=== PATIENT | female | born 1935 | race Caucasian/White ===

== ENCOUNTER 2018-02-04 14:41 | Outpatient (CLI) | payer MEDICARE, BC | END 2018-02-04 14:42 | disposition home or self-care (01) | LOC: BICMAMMO 14:41 | PROVIDERS: ATTEND Family Medicine | DX: Z12.31 Encounter for screening mammogram for malignant neoplasm of breast (principal); Z85.3 Personal history of malignant neoplasm of breast | CPT/HCPCS: 77063; 77067 ==

== ENCOUNTER 2018-04-30 15:13 | Outpatient (CLI) | payer MEDICARE, BC ==
--- NOTE | 2018-04-30 16:25 | MRI ---
MRI LUMBAR SPINE NONCONTRAST: Date: 04/30/18 HISTORY: Low back pain. Left leg radiculopathy. FINDINGS: Conus medullaris has a normal appearance. There is desiccation of lowest three intervertebral discs. Vertebral body heights are maintained. T12-L1: Mild osteophytosis. Central canal and neural foramina are patent. L1-2: Mild disc bulge. Thecal sac and neural foramina are patent. L2-3: Osteophytosis of the facets. Mild stenosis of each neural foramen. L3-4: Minimal degenerative spondylolisthesis. Small annular fissure at the right posterolateral aspect of t he disc. Posterior disc bulge and circumferential degenerative changes with moderate stenosis of the central canal and each neural foramen. L4-5: Disc space narrowing. Mild posterior disc bulge. Circumferential degenerative changes with mild steno sis of the central canal and each neural foramen. L5-S1: Minimal degenerative spondylolisthesis. Thecal sac is patent. Osteophytosis of the facets. Mild bilat eral foraminal stenoses. 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 IMPRESSION: Mild to moderate multilevel degenerative changes throughout the lumbar spine as detailed above. POS: [facility]
--- NOTE | 2018-04-30 16:27 | RAD ---
LUMBAR SPINE 3 VIEWS: Date: 04/30/18 HISTORY: M51.17, intervertebral disc disorder with radiculopathy. Left-sided low back pain. COMPARISON: MRI same date. FINDINGS: No acute fracture or malalignment. In the neutral position, there is Grade I L4 over L5 anterolisthesis without significant translation with flexion or extension. This is not well seen on the MRI and may be accentuated due to patient rot ation. Moderate calcifications of the aorta. IMPRESSION: No significant translation with flexion or extension. Please see MRI same date. POS: [facility]
== END 2018-04-30 15:14 | disposition home or self-care (01) ==
LOC: TBSIIMAG 15:13
PROVIDERS: ATTEND Nurse Practitioner Family
DX: M51.17 Intervertebral disc disorders with radiculopathy, lumbosacral region (principal); M99.83 Other biomechanical lesions of lumbar region; M43.16 Spondylolisthesis, lumbar region; M48.061 Spinal stenosis, lumbar region without neurogenic claudication; G95.89 Other specified diseases of spinal cord; M99.84 Other biomechanical lesions of sacral region; M43.17 Spondylolisthesis, lumbosacral region
CPT/HCPCS: 72100; 72148

== ENCOUNTER 2018-10-25 06:08 | Outpatient (CLI) | payer MEDICARE, BC ==
[2018-10-25 12:46] LABS: Anion Gap 14 mmol/L (10-20); BUN (Urea Nitrogen) 10 mg/dL (9.8-20.1); Calc. Creatinine Clearance 0 mL/min (70-130); Calcium 9.2 mg/dL (7.8-10.44); Carbon Dioxide 26 mmol/L (23-31); Chloride 98 mmol/L (98-107); Estimated GFR-MDRD 89; Glucose 115 mg/dL (83-110); Potassium 4.1 mmol/L (3.5-5.1); Sodium 134 mmol/L (136-145)
== END 2018-10-25 06:09 | disposition home or self-care (01) ==
LOC: LABBT 06:08
PROVIDERS: ATTEND Neurological Surgery
DX: Z01.818 Encounter for other preprocedural examination (principal); M54.16 Radiculopathy, lumbar region
CPT/HCPCS: 80048; 93005; 93010

== ENCOUNTER 2018-10-28 06:22 | Day surgery (SDC) | payer MEDICARE, BC ==
[2018-10-25 10:44] VITALS: BMI 27.4
--- NOTE | 2018-10-27 11:24 | HP ---
HISTORY OF PRESENT ILLNESS: Ms. Garcia is a pleasant 83-year-old woman, here today for evaluation of right-sided S1 pain that stops just under the knee. She has been receiving epidural steroid injections for this with Dr. Siddiqui and while they do help, the pain continues to return. She has an MRI from previous evaluation that reveals mild lateral recess stenosis at L4-L5 with specifically round spurring in the lateral recess of the right L5-S1 with impingement upon the right S1 nerve root as well. PAST MEDICAL HISTORY: Significant for gastroesophageal reflux disease, hypertension, hypothyroidism, anxiety, and depression. CURRENT MEDICATIONS: Nexium, hydrochlorothiazide, lisinopril, carvedilol, levothyroxine, alprazolam, and sertraline. PAST SURGICAL HISTORY: Partial hysterectomy, appendectomy, cholecystectomy, total knee replacement, right hip replacement, revision of left total knee replacement. ALLERGIES: TO SULFA MEDICATIONS, CODEINE, PAXIL, AMPICILLIN, AMOXICILLIN, LEXAPRO, ESCITALOPRAM, PAROXETINE, AND PENICILLIN. PHYSICAL EXAMINATION: GENERAL: The patient is alert and oriented x3. MUSCULOSKELETAL: Gait is significantly antalgic. Lower extremity motor exam is normal. ASSESSMENT: Lumbar radiculopathy. PLAN: Dr. Nath met with the patient, reviewed imaging, and advocated for right L5-S1 decompression. He explained to the patient about the risks, benefits, and alternatives of the procedure. The patient expressed understanding and elected to move forward with surgery as discussed. I do believe the patient is mentally competent and capable of making medical decisions for herself. We will move forward with surgery as planned. Job ID: [id number]
[2018-10-28] MEDS ORDERED: Levofloxacin 500 mg/D5W 100 ml Premix Bag ONE (07:27)
[2018-10-28] MEDS ORDERED: Clindamycin/D5W 900 mg/50 ml Premix Bag ONE (07:27)
[2018-10-28] MEDS ORDERED: Scopolamine 1.5 mg/72 hour Patch ONE (07:27)
[2018-10-28] MEDS ORDERED: Thrombin 5000 UNITS/5 ML VIAL ONE (07:58)
[2018-10-28] MEDS ORDERED: Bupivacaine HCl 0.5%/Epinephrine 1:200,000/PF 30 ml Vial ONE (07:58)
[2018-10-28] MEDS ORDERED: Fentanyl 100 MCG/2 ML VIAL ONE ×2 (08:11→09:49)
--- NOTE | 2018-10-28 08:56 | PRG ---
DATE OF SERVICE: 10/28/2018 SUBJECTIVE: Ms. Garcia is an 83-year-old female, who presented to the outpatient clinic with right S1 radiculopathy in the setting of an MRI scan, which revealed the presence of L5-S1 lateral recess stenosis impinging upon the descending S1 nerve root. She has treated this with injections by Dr. Siddiqui with no sustained benefit. After she left the clinic setting, she went home and discussed surgery with family and opted to move forward with surgery. I met with her this morning to discuss again with her diagnosis, her imaging, all of her treatment options including the surgical plan today which is right L5-S1 hemilaminectomy, medial facetectomy, and decompression. She continues to have symptoms today consistent with right S1 radiculopathy. I explained with her all the risks, benefits, and alternatives to surgery. I answered all of her questions and questions of her family. She provided informed consent. Job ID: [id number]
--- NOTE | 2018-10-28 10:03 | OP ---
DATE OF PROCEDURE: 10/28/2018 CHILD NEUROLOGIST: Riccardo Ponce PA-C INDICATION: Pain. DIAGNOSIS: Right S1 radiculopathy. PROCEDURES PERFORMED: Right L5-S1 hemilaminectomy, medial facetectomy, and decompression. ANESTHESIA: General. DESCRIPTION OF PROCEDURE: The patient was brought into the operating room and flipped from a supine to prone position on the operating room table. A linear incision was planned over the L5-S1 segment. After prepping and draping and after preoperative pause, the incision was created. The soft tissues were swept right of midline. A self-retaining retractor was placed in the wound for optimal exposure. After confirming appropriate level with C-arm fluoroscopy, high-speed cutting drill bit as well as 2, 3, and 4 mm Kerrisons were used to perform a hemilaminectomy along the inferior aspect of L5 and superior aspect of S1. The facet joint was removed along the medial third in order to adequately decompress the descending S1 nerve root. After decompression, the wound was irrigated. Hemostasis was maintained throughout. The wound was then closed in anatomic layers and a pressure dressing was applied. There were no known procedural complications. Job ID: [id number]
[2018-10-28] MEDS ORDERED: HYDROcodone/Acetaminophen 5/325 mg Tablet ONE (12:28)
[2018-10-28] MEDS ORDERED: ePHEDrine/0.9% NaCl/PF SYRINGE 50 mg/10 ml ONE (15:21)
[2018-10-28] MEDS ORDERED: Ondansetron PF 4 MG/2 ML Vial ONE (15:21)
[2018-10-28] MEDS ORDERED: Dexamethasone 20 MG/5 ML VIAL ONE (15:21)
[2018-10-28] MEDS ORDERED: PROPOFOL 200 MG/20 ML VIAL ONE (15:21)
[2018-10-28] MEDS ORDERED: Rocuronium Bromide 10 MG/ML (10ML VIAL) ONE (15:21)
[2018-10-28] MEDS ORDERED: PHENYLEPHRINE-NS 100 MCG/ML 10 ML SYRINGE ONE (15:21)
[2018-10-28] MEDS ORDERED: Lidocaine 1% PF 5 ML VIAL ONE (15:21)
[2018-10-28] MEDS ORDERED: Glycopyrrolate 0.2 MG/ML 5 ML SYRINGE ONE (15:21)
== END 2018-10-28 13:05 | disposition home or self-care (01) ==
LOC: SDC 06:22
PROVIDERS: ATTEND Neurological Surgery
PROC: 0SB20ZZ Excision of Lumbar Vertebral Disc, Open Approach (ICD-10-PCS; principal; 2018-10-28)
DX: M54.18 Radiculopathy, sacral and sacrococcygeal region (principal); K21.9 Gastro-esophageal reflux disease without esophagitis; I10 Essential (primary) hypertension; E03.9 Hypothyroidism, unspecified; F41.9 Anxiety disorder, unspecified; F32.9 Major depressive disorder, single episode, unspecified; Z90.711 Acquired absence of uterus with remaining cervical stump; Z90.49 Acquired absence of other specified parts of digestive tract; Z96.652 Presence of left artificial knee joint; Z96.641 Presence of right artificial hip joint; Z88.2 Allergy status to sulfonamides; Z88.5 Allergy status to narcotic agent; Z88.1 Allergy status to other antibiotic agents; Z88.0 Allergy status to penicillin; Z88.8 Allergy status to other drugs, medicaments and biological substances; Z79.899 Other long term (current) drug therapy
CPT/HCPCS: 76000; J0670; J1100; J1956; J2001; J2405; J2704; J3010; J3490

== ENCOUNTER 2019-02-10 14:09 | Outpatient (CLI) | payer MEDICARE, BC ==
--- NOTE | 2019-02-10 15:09 | CT ---
CT LUMBAR SPINE, NONCONTRAST: CLINICAL HISTORY: Pain. COMPARISON: No prior CT lumbar spine imaging available. FINDINGS: Fracture: None evident. Alignment: Trace spondylolisthesis at L5-S1. Disc Spaces, Endplates, Facet Joints: Moderate disc space narrowing is present at L4-5. Multilevel mo derate bilateral degenerative facet hypertrophy. Mild multilevel endplate degenerative irregularity, most notable at L4-5. Mild central canal narrowing of L1-2 and L2-3 is suggested, due to disc osteophyte formation. L3-4 le power reveals moderate to severe central canal stenosis, within limitations. L4-5 demonstrates moderate central canal stenosis, as does the L5-S1 level with effacement of terminal thecal sac by ri ght asymmetric broad-based disc osteophyte. Incidental findings: Colon diverticulosis. Atherosclerosis. IMPRESSION: Multilevel degenerative change of the lumbar spine, limited in evaluation by noncontrast CT imaging. Consider follow-up with MRI to more definitively evaluate as clinically indicated. Transcribed Date/Time: 02/10/2019 3:17 PM
== END 2019-02-10 14:10 | disposition home or self-care (01) ==
LOC: BICCT 14:09
PROVIDERS: ATTEND Neurological Surgery
DX: M47.26 Other spondylosis with radiculopathy, lumbar region (principal)
CPT/HCPCS: 72131

== ENCOUNTER 2019-03-12 09:40 | Outpatient (CLI) | payer MEDICARE, BC ==
[2019-03-12 11:01] LABS: Estimated GFR-MDRD - POC Greater than 90
--- NOTE | 2019-03-12 13:59 | MRI ---
MRI LUMBAR SPINE WITH AND WITHOUT CONTRAST: DATE: 03/12/19 HISTORY: 83-year-old female with low back pain and right lumbar radiculopathy. COMPARISON: 04/30/18. TECHNIQUE: Multiple sequences obtained in axial and sagittal planes, pre and post IV injection of gadolinium-bas ed contrast agent: 15 mL Multihance. FINDINGS: For the purposes of this report, it will be assumed that there are 5 lumbar-type vertebrae. The vert ebral body heights are maintained. Conus medullaris terminates at L1-2. Cauda equina is arranged in a symmetrical, normal distribution, throughout the thecal sac. No major bone marrow signal abnormality. The findings by individual levels are as follows: T12-L1: Tiny central disc protrusion. Otherwise, normal. L1-2: Small central disc herniation with slight inferior migration of left paracentral component of t he extruded disc herniation, unchanged since 04/30/18. Disc space maintained. No central or neural for aminal stenosis. L2-3: Disc space maintained. Mild ligamentum flavum thickening and mild bilateral degenerative facet hypertrophy. No central or neural foraminal stenosis. L3-4: Disc space maintained. Diffuse disc bulge indents the ventral aspect of the thecal sac. Moderat e ligamentum flavum thickening and mild to moderate bilateral degenerative facet hypertrophy. These f actors result in a trefoil configuration of the spinal canal and thecal sac, with overall mild to mod erate degree of central spinal canal stenosis. No significant neural foraminal stenosis. Probably no significant interval change. L4-5: Moderate disc space narrowing. Diffuse disc bulge indents the ventral aspect of the thecal sac. Mild right degenerative facet hypertrophy. Moderate to severe left degenerative facet changes. [place] configuration of spinal canal and thecal sac with mild to moderate central spinal canal stenosis, with questionable slight interval worsening of caliber of central spinal canal. No neural foraminal s tenosis. There is enhancement of the posterior perivertebral soft tissues surrounding the degenerated left facet complex. Because contrast was not given on the prior MRI, it is uncertain whether or not this enhancement is new. L5-S1: Enhancing postsurgical scar tissue in the right paramedian posterior perivertebral space close to the posterior aspect of the right side of the spinal. There is also enhancing scar tissue in the right lateral recess surrounding the right S1 nerve root. Bilateral facet joint effusions. Severe DJD of bilateral facet joints cause grade I anterolisthesis of L5 on S1. No disc space narrowing. Mild d isc bulge. No significant neural foraminal stenosis. IMPRESSION: 1. Lumbar spondylosis. 2. Severe bilateral facet osteoarthrosis at L5-S1 causing grade 1 spondylolisthesis. 3. Status post right hemilaminectomy at L5-S1, with scar tissue surrounding the right S1 nerve r oot at the right lateral recess, new since 04/30/18. 4. High grade left facet arthrosis at L4-5 with adjacent soft tissue enhancement. 5. Degenerative disc disease, moderate at L4-5, and mild at other levels, including chronic smal l disc herniations at multiple levels. 6. No severe central spinal canal stenosis, high grade neural foraminal stenosis, or john nerve root impingement, at any level. ANIRUDH Dhillon POS: [facility]
== END 2019-03-12 09:41 | disposition home or self-care (01) ==
LOC: BICMRI 09:40
PROVIDERS: ATTEND Neurological Surgery
DX: M47.26 Other spondylosis with radiculopathy, lumbar region (principal); M47.27 Other spondylosis with radiculopathy, lumbosacral region; M43.16 Spondylolisthesis, lumbar region; M51.16 Intervertebral disc disorders with radiculopathy, lumbar region
CPT/HCPCS: 72158; 82565

== ENCOUNTER 2019-07-08 07:23 | Outpatient (CLI) | payer MEDICARE, BC ==
--- NOTE | 2019-07-08 10:09 | CT ---
CT OF THE ABDOMEN AND PELVIS WITH IV CONTRAST: INDICATION: History of altered bowel function. COMPARISON: None. FINDINGS: ABDOMEN: There is a fat-containing Bochdalek hernia involving the left hemidiaphragm. There is subsegmental v olume loss within the lingua. There are scattered cysts within the liver. The pancreas and adrenal glands are normal appearing. The spleen is normal appearing. No focal winnie l lesion is evident. There are moderate calcifications involving the abdominopelvic vasculature. PELVIS: The reproductive structures are not identified and may be surgically absent. The bladder is decompre ssed. There are a few scattered diverticula involving the colon without evidence of active diverticulitis. The appendix is not seen. The small bowel is of normal caliber. OSSEOUS STRUCTURES: There is a well-healed right hip intratrochanteric fracture with cephalomedullary device. There is d iffuse osteopenia. No acute osseous abnormality is evident. There is scattered degenerative and ost eoarthritic change. There is remote appearance of superior end plate compression abnormality of T11. IMPRESSION: 1. No CT explanation for the patient's right lower quadrant abdominal pain and altered bowel functio n. 2. Hepatic cyst. 3. Colonic diverticulosis. 5. Diffuse osteopenia. POS: [facility]
[2019-07-08] MEDS ORDERED: ISOVUE-370 76%-LOCM 1 ML ONE (12:46)
== END 2019-07-08 07:24 | disposition home or self-care (01) ==
LOC: BICCT 07:23
PROVIDERS: ATTEND Physician Assistant Medical
DX: R10.31 Right lower quadrant pain (principal); R19.4 Change in bowel habit; K57.30 Diverticulosis of large intestine without perforation or abscess without bleeding; K76.89 Other specified diseases of liver; M85.80 Other specified disorders of bone density and structure, unspecified site
CPT/HCPCS: 74177; Q9966

== ENCOUNTER 2019-09-25 09:32 | Outpatient (CLI) | payer MEDICARE, BC ==
--- NOTE | 2019-09-25 10:45 | MRI ---
MR of the right shoulder without contrast INDICATION: Right shoulder pain. Disorder the right rotator cuff TECHNIQUE: Sagittal T1, axial and coronal PD fat sat, sagittal and coronal T2 fat sat images were obt ained of the right shoulder. COMPARISON: None. FINDINGS: Motion artifact limits image detail. Rotator cuff: No full-thickness tear is grossly evident. There is mild tendinosis of the supraspinatu s and infraspinatus. Glenohumeral joint: There is mild diffuse glenohumeral articular cartilage thinning. Glenoid labrum: There is a degenerative type tear involving the superior glenoid labrum and biceps an chor Biceps tendon and biceps anchor: There is poor visualization of the intra-articular biceps tendon kimberly picious for either severe partial-thickness tear complete tear. The tendon is seen at the superior margin of the bicipital groove. There is prominent degenerative signal involving the biceps anchor co mplex. Acromion clavicular joint: Moderate AC joint osteoarthrosis Subacromial subdeltoid space: There is a prominent amount of fluid in the subacromial subdeltoid burs a. Axillary region: No lymphadenopathy. Surrounding shoulder musculature: Normal. No evidence of atrophy or strain. IMPRESSION: 1. No full-thickness rotator cuff tear demonstrated. There is mild supraspinatus and infraspinatus te ndinosis. 2. High-grade partial-thickness versus complete tear of the anterior jugular biceps tendon. Motion ar tifact limits detail of the intra-articular biceps tendon. There is a type I SLAP tear involving the superior glenoid labrum with some tear extension into the biceps anchor complex. 3. Moderate AC joint osteoarthrosis. 4. Prominent amount of fluid in subacromial subdeltoid bursa may reflect underlying sequela of bursit is.
== END 2019-09-25 09:33 | disposition home or self-care (01) ==
LOC: BICMRI 09:32
PROVIDERS: ATTEND Family Medicine
DX: M25.811 Other specified joint disorders, right shoulder (principal); S43.401A Unspecified sprain of right shoulder joint, initial encounter; M19.011 Primary osteoarthritis, right shoulder

== ENCOUNTER 2019-11-06 14:59 | Outpatient (CLI) | payer MEDICARE, BC ==
--- NOTE | 2019-11-06 16:36 | CT ---
CT LUMBAR SPINE WITHOUT CONTRAST: INDICATIONS: 84-year-old female with low back pain COMPARISON: CT abdomen pelvis dated July 08, [address] of the lumbar spine dated February 10, 2019 TECHNIQUE: Multiple CT images were obtained of the lumbar spine without contrast. Axial, coronal, and sagittal r eformatted images were constructed from the raw data. FINDINGS: Visualized retroperitoneal and paravertebral soft tissues: There are moderate vascular calcifications seen involving the visualized vasculature. No pathologically enlarged lymph nodes are evident. There are interval age-indeterminate superior endplate compression fracture of L3 and inferior endpla te compression fracture of L2. There is diffuse osteopenia. Spinal alignment: Within normal limits. Spinal instrumentation or postsurgical change: None At L5-S1, there is grade 1 anterolisthesis of L5 on S1 which is stable. There is a broad-based disc b ulge with facet hypertrophy inducing mild right neural foraminal narrowing.. At L4-5, there is a broad-based bulge with facet hypertrophy inducing mild bilateral neural foraminal narrowing At L3-4, there is a broad-based bulge with facet hypertrophy inducing at least mild bilateral neural foraminal narrowing and mild central canal narrowing At L2-3, there is a broad-based disc osteophyte complex with facet hypertrophy inducing at least mild central canal narrowing with mild bilateral neural foraminal narrowing At L1-L2, there is a broad-based bulge without appreciable central canal or neural foraminal narrowin g At T12-L1, there is no appreciable central canal or neuroforaminal narrowing. IMPRESSION: 1. Interval, age indeterminate endplate compression fractures involving the superior aspect of L3 an d inferior aspect of L2. 2. Moderate multilevel spondylosis of the lumbar spine.
== END 2019-11-06 15:00 | disposition home or self-care (01) ==
LOC: BICCT 14:59
PROVIDERS: ATTEND Neurological Surgery
DX: M54.5 Low back pain (principal); M47.816 Spondylosis without myelopathy or radiculopathy, lumbar region
CPT/HCPCS: 72131

== ENCOUNTER 2019-11-13 22:12 | Inpatient (IN) | payer MEDICARE, BC ==
--- NOTE | 2019-11-13 22:44 | RAD ---
XR Chest 1 View Portable History: Chest tightness Comparison: Radiograph 2017 Findings: Exam is limited due to leftward patient rotation. Given this limitation the lungs are clear . No pneumothorax. No effusion. No acute osseous abnormality. Impression: No acute intrathoracic abnormality.
[2019-11-13 22:54] LABS: #Basophils 0.1 thou/uL (0.0-0.2); #Eosinphils 0.2 thou/uL (0.0-0.7); #Lymphocytes 1.6 thou/uL (1.20-3.40); #Monocytes 0.8 thou/uL (0.11-0.59); #Neutrophils 9.6 thou/uL (1.40-6.50); %Basophils 0.6 % (0.0-1.0); %Eosinophils 1.9 % (0.0-10.0); %Lymphocytes 13.2 % (21.0-51.0); %Monocytes 6.4 % (0.0-10.0); %Neutrophils 77.9 % (42.0-75.0); Hemoglobin 13.4 g/dL (12.0-16.0); Mean Corpuscular HGB CONC 33.2 g/dL (32.0-36.0); Mean Corpuscular Hemoglobin 31.3 pg (27.0-31.0); Mean Corpuscular Volume 94.2 fL (78.0-98.0); Mean Platelet Volume 8.5 fL (7.4-10.4); Platelet Count 286 thou/uL (130-400); RBC Distribution Width 11.4 % (11.5-14.5); Red Blood Cell (RBC) Count 4.27 mill/uL (4.20-5.40); White Blood Cell (WBC) Count 12.4 thou/uL (4.8-10.8)
[2019-11-13 23:17] LABS: ALT (SGPT) 38 U/L (8-55); AST (SGOT) 62 U/L (5-34); Albumin 4.1 g/dL (3.4-4.8); Alkaline Phosphatase 177 U/L (40-110); Anion Gap 14 mmol/L (10-20); BUN (Urea Nitrogen) 16 mg/dL (9.8-20.1); Bilirubin, Total 0.9 mg/dL (0.2-1.2); Calc. Creatinine Clearance 0 mL/min (70-130); Calcium 8.9 mg/dL (7.8-10.44); Carbon Dioxide 27 mmol/L (23-31); Chloride 98 mmol/L (98-107); Estimated GFR-MDRD 74; Globulin 2.7 g/dL (2.4-3.5); Glucose 128 mg/dL (83-110); Lipase 9 U/L (8-78); Potassium 4.1 mmol/L (3.5-5.1); Protein, Total 6.8 g/dL (6.0-8.3); Sodium 135 mmol/L (136-145)
[2019-11-14] MEDS ORDERED: Aspirin Chewable 81 MG TAB ONE (00:11)
[2019-11-14] MEDS ORDERED: Aspirin 325 MG TAB ONE (00:12)
[2019-11-14] MEDS ORDERED: Ondansetron PF 4 MG/2 ML Vial IVP PRN ×2 (00:56→20:37)
[2019-11-14] MEDS ORDERED: Ondansetron ODT 4 MG TAB SL PRN (00:56)
[2019-11-14] MEDS ORDERED: Acetaminophen 325 MG TAB PO PRN (00:56)
[2019-11-14] MEDS ORDERED: Nitroglycerin 0.4 MG TAB (25 Tab Bottle) PO PRN (01:49)
[2019-11-14] MEDS ORDERED: Enoxaparin Sodium 40 MG/0.4 ML SYRINGE SC SCH (02:00)
[2019-11-14 02:18] LABS: Troponin I 0.011 ng/mL (< 0.028)
--- NOTE | 2019-11-14 02:29 | PDOC.EVN ---
Event Note - Event Note Event Note: [id number] HP
[2019-11-14 03:03] VITALS: BMI 24.3
--- NOTE | 2019-11-14 03:07 | HP ---
CHIEF COMPLAINT: Chest pain. HISTORY OF PRESENT ILLNESS: Ms. Garcia is an 84-year-old female with past medical history of hypertension, breast cancer, presents to the emergency room with chest pain, tightness that started 1 to 2 hours prior to arrival. Denies shortness of breath. Denies radiation or diaphoresis. No aggravating or relieving factors. The patient's initial workup, the patient was found to be in atrial fibrillation with controlled ventricular response. No history of atrial fibrillation in the past. The patient is being admitted to hospital for further management. PAST MEDICAL HISTORY: 1. Hypertension. 2. Breast cancer. 3. Fracture, L2 and L3. PAST SURGICAL HISTORY: 1. Double knee surgery. 2. Right hip surgery. 3. Right femur surgery. 4. Cholecystectomy. 5. Hysterectomy. SOCIAL HISTORY: Denies smoking, alcohol drinking, or drug abuse. FAMILY HISTORY: Reviewed and noncontributory. ALLERGIES: ALLERGIC TO AMOXICILLIN, PENICILLIN, CODEINE, ESCITALOPRAM, LEXAPRO, PAROXETINE, PAXIL, PENICILLINS, AND SULFA. HOME MEDICATIONS: Please see home medication reconciliation form for updated medications. REVIEW OF SYSTEMS: Review of 14 systems negative except what is mentioned in the history of present illness. PHYSICAL EXAMINATION: GENERAL: The patient is awake, alert, not in acute distress. VITAL SIGNS: Blood pressure 119/59, pulse is 71, respiratory rate is 19, and pulse oximetry 98% on room air. HEAD: Normocephalic and atraumatic. NECK: Supple. No JVD. CHEST: Fair bilateral air entry. HEART: Irregularly irregular. ABDOMEN: Soft, nontender. Bowel sounds present. NEUROLOGIC: Awake, alert, and oriented x3. PSYCH: Normal mood. EXTREMITIES: No clubbing or cyanosis. GENITOURINARY: No suprapubic tenderness. No flank tenderness. DIAGNOSTIC STUDIES: Chest x-ray, no acute intra-carotic abnormality. ASSESSMENT: 1. Acute chest pain. 2. Atrial fibrillation with controlled ventricular response, new onset?.. 3. Hypertension. 4. History of breast cancer. PLAN: 1. Admit. 2. Telemetry monitoring. 3. Aspirin. 4. One dose of Lovenox tonight, reassess in a.m. 5. 2D echo. 6. Check TSH. 7. Consult patient's tipple greaser in a.m. for evaluation and further recommendations. 8. Reconcile home medications. 9. DVT prophylaxis as appropriate. 10. Expected length of stay at least 1 midnight if patient is stable and further workup negative. Job ID: [id number]
[2019-11-14] MEDS ORDERED: Enoxaparin Sodium 80 MG/0.8 ML SYRINGE SC SCH (03:30)
[2019-11-14 05:16] LABS: Troponin I 0.014 ng/mL (< 0.028)
[2019-11-14 08:04] LABS: Hemoglobin 13.5 g/dL (12.0-16.0); Mean Corpuscular HGB CONC 33.1 g/dL (32.0-36.0); Mean Corpuscular Hemoglobin 31.6 pg (27.0-31.0); Mean Corpuscular Volume 95.5 fL (78.0-98.0); Mean Platelet Volume 7.9 fL (7.4-10.4); Platelet Count 285 thou/uL (130-400); RBC Distribution Width 11.3 % (11.5-14.5); Red Blood Cell (RBC) Count 4.28 mill/uL (4.20-5.40); White Blood Cell (WBC) Count 8.1 thou/uL (4.8-10.8)
[2019-11-14 08:28] LABS: Anion Gap 9 mmol/L (10-20); BUN (Urea Nitrogen) 11 mg/dL (9.8-20.1); Calc. Creatinine Clearance 75 mL/min (70-130); Carbon Dioxide 29 mmol/L (23-31); Chloride 104 mmol/L (98-107); Estimated GFR-MDRD 89; Glucose 114 mg/dL (83-110); Potassium 4.2 mmol/L (3.5-5.1); Sodium 138 mmol/L (136-145)
[2019-11-14] MEDS ORDERED: Aspirin 325 mg Enteric Coated Tablet PO SCH (09:00)
[2019-11-14] MEDS ORDERED: Carvedilol 3.125 MG TAB PO SCH (09:00)
[2019-11-14] MEDS ORDERED: ADENOSINE 60 MG/20 ML VIAL ONE (09:35)
--- NOTE | 2019-11-14 13:21 | CON ---
DATE OF CONSULTATION: PRIMARY CARE DOCTOR: All Herrera MD PRIMARY PHOTO MANAGER: Vandana Esteban MD REFERRING DOCTOR: Monserrat mendoza. REASON FOR CARDIOLOGY CONSULT: New onset atrial fibrillation. HISTORY OF PRESENT ILLNESS: Ms. Garcia is very present 84-year-old female with a significant history of hypertension, orthostatic hypotension, hypothyroidism, and recent L2-L3 fractures. Last time patient was seen in Dr. Esteban' office was in September 29, 2019. At that time patient's EKG showed sinus rhythm. On October 03, the patient fractured L2 and L3. The patient had seen Dr. Nath and the patient was referred to Dr. Siddiqui for the pain management. She was at Dr. Siddiqui's office yesterday. According to the patient, the patient's vital sign is stable. She did not have EKG at that time. The patient was prescribed hydrocodone by Dr. Siddiqui yesterday. She took first dose around 9 o'clock and then she started having chest tightness under bilateral upper breast for 1-2 hours. After she burped several times, the patient's symptoms improved. Due to the symptoms, the patient's family member took the patient to the emergency department for further evaluation and treatment and the patient was found to have new onset atrial fibrillation. The patient denied chest pain, heaviness, tightness, shortness of breath, dizziness, lightheadedness, or any other cardiac complaints prior to and after the patient admitted in the ER. The patient's blood pressure at home has been in the 120s to 130s over 60 to 70s. The patient's last echocardiogram was done in September 24 with EF 65% to 70% and grade 1 diastolic dysfunction, mildly dilated left atrium, mild mitral valve regurgitation, [id number] tricuspid regurgitation, and mild pulmonic regurgitation. The patient had a stress test done in 2013 with no ischemia with an EF 70%. FAMILY HISTORY: Noncontributory. SOCIAL HISTORY: She lives with the family. She is retired. She denies EtOH and tobacco or illicit drug abuse. She does not have a good balance due to history of right femur fractures and she continued having chronic back pain due to recent L2-L3 fractures. ALLERGIES: PLEASE REFER TO THE PATIENT'S CHART. HOME MEDICATION: 1. Nexium 40 mg once a day. 2. Vitamin D3 2000 units once a day. 3. Levothyroxine 50 mcg once a day. 4. Norvasc 2.5 mg twice a day. 5. Lisinopril 40 mg one tablet in the morning, half tablet in the p.m. 6. Hydrochlorothiazide 1 tablet in the morning. 7. Carvedilol 12.5 mg 1 tablet once a day and half tablet in the p.m. REVIEW OF SYSTEMS: 12-point review of systems negative unless otherwise mentioned in HPI. PHYSICAL EXAMINATION: VITAL SIGNS: Blood pressure 131/64, temperature 97.9, pulse is 75, atrial fibrillation, respiratory rate 16, O2 saturation 97% on room air. GENERAL: The patient is alert and oriented x4, not in acute distress. HEENT: Normocephalic, atraumatic. Eyes; extraocular muscle movement intact. ENT; mouth oral, nasal mucosa moist without lesion. NECK: Supple. Normal range of motion. No JVD. RESPIRATORY: Clear to auscultate bilaterally. No wheezing, rales, or rhonchi noted. CARDIOVASCULAR: Irregularly irregular. No S3 or S4. No significant murmur, hives are noted. 2+ pulses in bilateral upper and lower extremities. No edema in the lower extremities. Carotid pulses are present without bruit or thrill. ABDOMEN: Soft, nontender. No mass to palpitate. Bowel sounds are present. MUSCULOSKELETAL: The patient able to move all extremities. However, due to the fracture of L2-L3, she has very hard time to turn herself. SKIN: Warm and dry. No lesion, rash. The patient has erythema to her face especially at her chin. She denied itchiness or burning at the site. NEUROLOGIC: The patient is alert and oriented x4. Nonfocal. PSYCHIATRIC: The patient's mood is appropriate. LABORATORY DATA: WBC 8.1, hemoglobin 13.5, hematocrit 40.9, platelets 285. Sodium 138, potassium 4.2, BUN 11, creatinine 0.64, AST 62, ALT 38, alkaline phosphate 177. Troponin is negative. TSH 9.1930. Glucose 114. Chest x-ray shows no acute intrathoracic abnormality. 12-lead EKG shows atrial fibrillation. No ST-segment change or T-wave inversion. ASSESSMENT AND PLAN: 1. New onset atrial fibrillation. The patient's heart rate is well controlled at this moment, stable at this moment. She is on Lovenox from this morning. Carvedilol 3.125 is going to be resumed this morning after the patient finished stress test. The stress test was ordered to eval coronary arteries and also patient complained of chest tightness, stress test for surgical clearance for procedure by Dr. Siddiqui. At this moment, the patient denied any chest tightness, heaviness, shortness of breath, dizziness, lightheadedness, or any other cardiac complaints. 2. Hypertension. The patient's blood pressure is stable at this moment. We will resume carvedilol from this morning and adjust the patient's blood pressure medications as appropriate. 3. Hypothyroidism. The patient's TSH is 9.1930, T4 and T3 is going to be checked today. She is on levothyroxine 50 mcg at home, it should be resumed today, which is managed by primary care doctor. 4. Recent fracture of L2 and L3. The patient is not on any pain medication except Tylenol. The patient may need a more stronger medication for back pain, which is managed by primary care doctor. Thank you very much for Cardiology Service to participate in care of this patient. We will follow along the patient's care team and make further recommendations as appropriate. Job ID: [id number]
--- NOTE | 2019-11-14 16:02 | NM ---
Radionucleotide stress and rest myocardial perfusion scan with CT attenuation correction and SPECT im aging Left ventricular wall motion evaluation and ejection fraction HISTORY: Chest pain. Atrial fibrillation. FINDINGS: Adenosine protocol. There is heterogeneous uptake of radiotracer throughout the left ventri cular myocardium. No focal perfusion defect or reversibility are apparent. QGS analysis of gated SPECT images shows no focal wall motion abnormalities. Ejection fraction greate r than 80 %. IMPRESSION: Normal exam.
[2019-11-14] MEDS ORDERED: Bisacodyl 10 MG SUPP PR PRN (17:28)
[2019-11-14] MEDS: Carvedilol 6.25 MG TAB PO SCH (17:51)
[2019-11-14] MEDS ORDERED: Polyethylene Glycol 3350 17 GM Packet PO PRN (19:37)
--- NOTE | 2019-11-14 19:39 | PDOC.HOSPP ---
- Subjective Encounter Date: 11/14/19 Encounter Time: 09:00 Subjective: The patient had chest tightness yesterday after taking hydrocodone. She reports no BM in the past three days. She still has had no BM and would like to stay overnight to have a bowel movement. STress test negative. Per Dr. Esteban unsafe to get back surgery since she needs to start eliquis. Pt understands - Objective Vital Signs & Weight: Vital Signs (12 hours) Temp Pulse Resp BP BP Pulse Ox 11/14/19 17:51 157/84 H 11/14/19 15:36 97.9 F 85 22 H 157/84 H 97 11/14/19 11:15 98.0 F 75 12 153/72 H 97 Weight Weight 155 lb 9 oz I&O: 11/13/19 11/14/19 11/15/19 06:59 06:59 06:59 Intake Total 240 Output Total 900 650 Balance -900 -410 Result Diagrams: 11/14/19 07:40 11/14/19 07:40 Hospitalist ROS - Review of Systems Constitutional: denies: fever, chills - Medication Medications: Active Medications Generic Name Dose Route Start Last Admin Trade Name Freq PRN Reason Stop Dose Admin Bisacodyl 10 mg 11/14/19 17:28 11/14/19 17:56 Dulcolax IL 10 mg DAILYPRN PRN Administration Constipation Carvedilol 3.125 mg 11/14/19 17:00 11/14/19 17:51 Coreg PO 3.125 mg BID-WM LILLIAN Administration - Exam General Appearance: NAD, awake alert Eye: PERRL, anicteric sclera ENT: normocephalic atraumatic, no oropharyngeal lesions Neck: no JVD Heart: RRR, no murmur, no gallops, no rubs Respiratory: CTAB, no wheezes, no rales, no ronchi Gastrointestinal: soft, non-tender, non-distended, normal bowel sounds Extremities: no cyanosis, no clubbing, no edema Skin: normal turgor, no lesions, no rashes Neurological: cranial nerve grossly intact, normal sensation to touch, no focal deficits, no new deficit Hosp A/P - Plan THis is 84 year old female with past medical history ofbreast cnacer who came in with chest tightness, incidentally found to be in afib New onset afib - on coreg 12.5 mg bid at home, but on 3.12 mg bid here with adequate control of BP -will start eliquis 2.5 mg bid Hypertension - controlled - continue coreg - can resume amlodipine, lisinopril 40 qam and 20 qhs if needed Constipation - will add miralax - suppository prn
--- NOTE | 2019-11-14 20:23 | CON ---
DATE OF CONSULTATION: 11/14/2019 INDICATION FOR CONSULTATION: An 84-year-old female with new onset atrial fibrillation and chest pain. HISTORY OF PRESENT ILLNESS: This 84-year-old female, who has a history of hypertension and also has some degree of orthostatic hypotension, has had some recent lower back fractures L2-L3 and was awaiting surgery on Sunday. She developed some back pain and then took I believe some hydrocodone. She then became short of breath. Had some facial swelling and presented to the emergency room. At that time, she was noted to be in atrial fibrillation with rapid ventricular response. She had also complained some chest discomfort associated with it at that time, which may be due to the atrial fibrillation. At this time, she is feeling somewhat better. She was seen by me in the office earlier and was cleared for her surgery, I believe. She was seen last in the office on September 29, 2019. She had had an echocardiogram, which showed a normal left ventricular systolic dysfunction with 1/3 diastolic dysfunction and mild mitral valve regurgitation and [id number] tricuspid valve regurgitation. The left atrium was 3.75 cm. She also was seen in the office several years ago and had a stress test back in 2013, which showed no evidence of ischemia. Her ejection fraction has always been normal. At this time, uncertain of the etiology of atrial fibrillation, but certainly could be due to underlying coronary artery disease. However, the EKG did not show any evidence of ischemia other than the atrial fibrillation and there was no elevation of the cardiac enzymes. At this time, she denies any chest discomfort and she is resting comfortably. She has just returned from a nuclear stress test. We will await the results of that. Should the stress test be abnormal, then she will need to undergo a cardiac catheterization on Sunday. If there is no evidence of ischemia, then as long as the heart rate is under good control and she is on anticoagulation, she could be discharged to home, but most likely this will not allow her to be having surgery on Sunday. We will need to try to contact Dr. Siddiqui to inform him that most likely she will not be able to have her scheduled surgery on Sunday. However, if she continued to have atrial fibrillation, has severe pain that needs to be addressed, then she would need to hold the anticoagulation, still putting her at increased risk of embolic phenomenon associated with atrial fibrillation. She would need to be on oral anticoagulation most likely for at least 3 to 4 weeks prior to even attempting electrical cardioversion. Worst problem according to the patient is her severe lower back pain at this time. We will continue to monitor the patient and depending on the results of the stress test, further recommendations will follow. PAST MEDICAL HISTORY: Please refer to the notes dictated by the nurse practitioner. I have reviewed this. We have discussed with the patient and I would agree with her assessment and plan at this time except for what is noted in my history of present illness at this time. SOCIAL HISTORY: Please refer to the notes dictated by the nurse practitioner. I have reviewed this. We have discussed with the patient and I would agree with her assessment and plan at this time except for what is noted in my history of present illness at this time. FAMILY HISTORY: Please refer to the notes dictated by the nurse practitioner. I have reviewed this. We have discussed with the patient and I would agree with her assessment and plan at this time except for what is noted in my history of present illness at this time. REVIEW OF SYSTEMS: Please refer to the notes dictated by the nurse practitioner. I have reviewed this. We have discussed with the patient and I would agree with her assessment and plan at this time except for what is noted in my history of present illness at this time. MEDICATIONS: Please refer to the notes dictated by the nurse practitioner. I have reviewed this. We have discussed with the patient and I would agree with her assessment and plan at this time except for what is noted in my history of present illness at this time. ALLERGIES: PLEASE REFER TO THE NOTES DICTATED BY THE NURSE PRACTITIONER. I HAVE REVIEWED THIS. WE HAVE DISCUSSED WITH THE PATIENT AND I WOULD AGREE WITH HER ASSESSMENT AND PLAN AT THIS TIME EXCEPT FOR WHAT IS NOTED IN MY HISTORY OF PRESENT ILLNESS AT THIS TIME. PHYSICAL EXAMINATION: Please refer to the notes dictated by the nurse practitioner. I have reviewed this. We have discussed with the patient and I would agree with her assessment and plan at this time except for what is noted in my history of present illness at this time. Job ID: [id number]
[2019-11-14] MEDS ORDERED: Ondansetron ODT 4 MG TAB PO PRN (20:37)
[2019-11-14] MEDS: Enoxaparin Sodium 60 MG/0.6 ML SYRINGE SC SCH (20:57)
[2019-11-14] MEDS ORDERED: Lidocaine 2% Viscous Solution 10 ML, Aluminum & Magnesium Hydroxide 30 ML SSW SCH (21:15)
[2019-11-14] MEDS ORDERED: Fleet Enema 133 ML BOT PR SCH (21:15)
[2019-11-14] MEDS: Famotidine 20 MG TAB PO SCH (21:31)
[2019-11-15 04:31] LABS: Hemoglobin 13.1 g/dL (12.0-16.0); Mean Corpuscular HGB CONC 33.7 g/dL (32.0-36.0); Mean Corpuscular Hemoglobin 32.2 pg (27.0-31.0); Mean Corpuscular Volume 95.4 fL (78.0-98.0); Mean Platelet Volume 8.5 fL (7.4-10.4); Platelet Count 260 thou/uL (130-400); RBC Distribution Width 11.4 % (11.5-14.5); Red Blood Cell (RBC) Count 4.08 mill/uL (4.20-5.40); White Blood Cell (WBC) Count 9.3 thou/uL (4.8-10.8)
[2019-11-15] MEDS ORDERED: Acetaminophen 325 MG TAB PO PRN (04:36)
[2019-11-15 04:48] LABS: Anion Gap 14 mmol/L (10-20); BUN (Urea Nitrogen) 13 mg/dL (9.8-20.1); Calc. Creatinine Clearance 74 mL/min (70-130); Calcium 8.6 mg/dL (7.8-10.44); Carbon Dioxide 22 mmol/L (23-31); Chloride 103 mmol/L (98-107); Estimated GFR-MDRD 87; Glucose 122 mg/dL (83-110); Potassium 3.9 mmol/L (3.5-5.1); Sodium 135 mmol/L (136-145)
[2019-11-15] MEDS ORDERED: Levothyroxine Sodium 50 MCG TAB PO SCH (06:00)
[2019-11-15] MEDS: Famotidine 20 MG TAB PO SCH (08:33)
[2019-11-15] MEDS: Carvedilol 6.25 MG TAB PO SCH (08:34)
[2019-11-15] MEDS: Enoxaparin Sodium 60 MG/0.6 ML SYRINGE SC SCH (08:35)
[2019-11-15] MEDS ORDERED: Aspirin 81 mg Enteric Coated Tablet PO SCH (09:00)
--- NOTE | 2019-11-15 11:11 | DIS ---
DATE OF ADMISSION: 11/14/2019 DATE OF DISCHARGE: 11/15/2019 PRIMARY CARE PROVIDER: All Herrera MD. DISCHARGE DIAGNOSES: 1. New-onset atrial fibrillation with rapid ventricular response. 2. Hyponatremia. 3. Elevated TSH, normal free T3 and free T4. CONDITION: Condition of patient on the day of discharge: Stable. I assessed Ms. Garcia on the day of discharge. She denies any chest pain or shortness of breath. Vital signs are stable. S1 and S2 are heard, irregular. Lungs are clear to auscultation bilaterally. CONSULTATIONS DURING THIS HOSPITALIZATION: Cardiology, Dr. Esteban. POST-ACUTE CARE FOLLOWUP: With Dr. Esteban in 2 to 3 weeks and with primary care provider in 3 days. DISCHARGE MEDICATIONS: Coreg dose has been decreased to 3.125 mg 2 times a day. She has been started on apixaban 5 mg 2 times a day and aspirin 81 mg daily. Amlodipine and lisinopril have been discontinued. She is advised to continue [place] p.r.n., Nexium 20 mg daily, and Synthroid 50 mcg daily. HOSPITAL COURSE: Ms. Garcia is a pleasant 84-year-old lady, who was admitted to [facility] on November 14, 2019, for atrial fibrillation with rapid ventricular response. She was seen by Cardiology Service. She has been started on anticoagulation. She also had a nuclear stress test, which showed ejection fraction greater than 80% and no focal perfusion defect or reversibility. She is being discharged home in a stable condition. On the day of discharge, she has sodium 135, potassium 3.9, and creatinine 0.65. White count 9300, hemoglobin 13.1, and platelet count 260,000. Many thanks for allowing me to participate in your patient's care. Please feel free to contact me with any questions or concerns. ACTIVITY: As tolerated. DIET: Heart-healthy diet. DISCHARGE DESTINATION: Home. TIME SPENT: Total amount of time spent in coordinating this discharge: 32 minutes. Job ID: [id number]
[2019-11-15 12:21] VITALS: BP 114/57; TEMP 97.8
[2019-11-15] MEDS ORDERED: Apixaban 2.5 MG TAB PO SCH (21:00)
--- NOTE | 2019-11-17 21:42 | PQF ---
KAT JORDAN DAVID [id number] [facility] [id number] CLINICAL DOCUMENTATION CLARIFICATION FORM: POST DISCHARGE Addendum to original discharge summary date: ____ Late entry note date: __ DATE: 11/17/2019 ATTN: Mark Durand Please exercise your independent, professional judgment in responding to the clarification form. Clinical indicators are provided on the bottom of this form for your review Please check appropriate box(s): [ ] Paroxysmal Atrial Fibrillation [ ] Persistent Atrial Fibrillation [ X ] Atrial fib unspecified [ ] Atrial Flutter [ ] Other diagnosis [ ] Unable to determine For continuity of documentation, please document condition throughout progress notes and discharge summary. Thank You. CLINICAL INDICATORS - SIGNS / SYMPTOMS / LABS 11/14 "Patient was found to be in atrial fibrillation" Consult 11/14 "New onset of atrial fibrillation" 11/14 "presents to the ER with chest pain and tightness" RISKS FACTORS 11/14-84 years old female 11/14-HTN Consult 11/14-Hypothryroidism Consult 11/14-Mitral and tricuspid regurgitation TREATMENTS: Collected 11/13-Chest Xray 11/14-Telemetry monitoring 11/14-2D Echo Collected 11/14-Stress test Consult 11/14-Cardiology Consult Consult 11/14-EKG [facility] 11/14-Adenosine 60mg Oral (This form is maintained as a part of the permanent medical record) 2014 [employer] All Rights Reserved [email or web address] [phone] [email or web address]
== END 2019-11-15 12:46 | disposition home or self-care (01) | DRG 309 ==
LOC: ERS 22:12 → 2SE 11-14 00:52 → OBSVTOIN 11-14 16:56 → 2NO 11-14 22:35
PROVIDERS: ADMIT Internal Medicine; ATTEND Internal Medicine
DX: I48.91 Unspecified atrial fibrillation (principal); E87.1 Hypo-osmolality and hyponatremia; E03.9 Hypothyroidism, unspecified; I08.1 Rheumatic disorders of both mitral and tricuspid valves; G89.29 Other chronic pain; K59.00 Constipation, unspecified; I10 Essential (primary) hypertension; Z85.3 Personal history of malignant neoplasm of breast; Z90.710 Acquired absence of both cervix and uterus; Z90.49 Acquired absence of other specified parts of digestive tract; Z88.1 Allergy status to other antibiotic agents; Z88.5 Allergy status to narcotic agent; Z88.0 Allergy status to penicillin; Z88.2 Allergy status to sulfonamides; Z88.8 Allergy status to other drugs, medicaments and biological substances; S32.029D Unspecified fracture of second lumbar vertebra, subsequent encounter for fracture with routine healing; S32.039D Unspecified fracture of third lumbar vertebra, subsequent encounter for fracture with routine healing; Z79.899 Other long term (current) drug therapy
CPT/HCPCS: 36415; 71045; 78452; 80048; 80053; 83690; 83735; 84439; 84443; 84481; 84484; 85025; 85027; 93005; 93017; 94760; A9500; J0153; J1650; J2405

== ENCOUNTER 2019-12-24 10:19 | Outpatient (CLI) | payer MEDICARE, BC ==
--- NOTE | 2019-12-24 11:32 | MRI ---
EXAM: MRI thoracic spine without contrast HISTORY: T11 compression fracture COMPARISON: None TECHNIQUE: Multiplanar multisequence MR images were obtained of the thoracic spine without contrast. FINDINGS: There are wedge pressure deformities of T11 and L1 vertebral body with approximately 50-75% height lo ss. There is slight retropulsion of the superior endplate of L1 into the central canal approximately 5 mm. The visualized cord demonstrates normal signal throughout. The prevertebral soft tissues are unremarkable. No paraspinal soft tissue abnormality is seen. T1/2: No significant posterior bulge or protrusion. No posterior facet arthrosis. No central canal stenosis. No neural foraminal stenosis. T2/3: No significant posterior bulge or protrusion. No posterior facet arthrosis. No central canal stenosis. No neural foraminal stenosis. T3/4: No significant posterior bulge or protrusion. No posterior facet arthrosis. No central canal stenosis. No neural foraminal stenosis. T4/5: No significant posterior bulge or protrusion. No posterior facet arthrosis. No central canal stenosis. No neural foraminal stenosis. T5/6: No significant posterior bulge or protrusion. No posterior facet arthrosis. No central canal stenosis. No neural foraminal stenosis. T6/7: No significant posterior bulge or protrusion. No posterior facet arthrosis. No central canal stenosis. No neural foraminal stenosis. T7/8: No significant posterior bulge or protrusion. No posterior facet arthrosis. No central canal stenosis. No neural foraminal stenosis. T8/9: No significant posterior bulge or protrusion. No posterior facet arthrosis. No central canal stenosis. No neural foraminal stenosis. T9/10: No significant posterior bulge or protrusion. No posterior facet arthrosis. No central canal stenosis. No neural foraminal stenosis. T10/11: No significant posterior bulge or protrusion. No posterior facet arthrosis. No central agustin l stenosis. Mild bilateral neural foraminal stenosis. T11/12: No significant posterior bulge or protrusion. No posterior facet arthrosis. No central agustin l stenosis. Mild bilateral neural foraminal stenosis. T12/L1: No significant posterior bulge or protrusion. No posterior facet arthrosis. No central agustin l stenosis. Mild bilateral neural foraminal stenosis. IMPRESSION: Compression fractures of T11 and L1 as above. There is mild narrowing of the central canal posterior to L1.
--- NOTE | 2019-12-24 12:35 | MRI ---
MRI Lumbar Spine WO Con HISTORY: Compression fracture of L4. Complaining of back pain that has gotten worst in the past 3 day s COMPARISON: 03/12/2019 MRI study and 11/06/2019 CT examination of the lumbar spine. FINDINGS: There is been a significant change in the appearance of the spine as compared to the prior examination. Kyphoplasty changes at L1, L2 and L3 are present. There is severe compression deformity of L1 with compression of the superior and inferior endplates with approximately 50% compre ssion. There are some mild marrow edema changes associated with this. Some element of this compression is felt to be acute to subacute. The compression changes of L2 appear fairly similar to the previous exam. Slight increased compressio n changes to the superior endplate compression changes of L3 with minimal marrow edema change in this area. There has been development of a mild osteoporotic type compression fracture of the superior endplate of L4. The L5 vertebral body maintains normal height. There is a severe compression deformity with edema change of the T11 vertebral body. This is develope d since the previous study. T12-L1: A broad-based retropulsion of the posterior superior margin of this vertebral body by approxi mately 5 mm is present. No significant canal stenosis. L1-2: Disc bulge and a small left paracentral disc protrusion /osteophyte is present. L2-3: Degenerative facet changes at this level impress on the thecal sac. There is mild canal narrowi ng. L3-4: Prominent degenerative facet and ligamentous hypertrophic changes are present. There is a mild degree of canal stenosis. No significant foraminal narrowing. L4-5: Prominent degenerative facet changes again noted with mild canal narrowing. No significant fora kaitlyn stenosis. L5-S1: Degenerative facet changes also present at this level without canal or foraminal stenosis. IMPRESSION: 1. Multilevel compression changes with severe compression changes involving the superior and inferior endplates of T11 and L1. The T11 changes have more edema change associated the vertebral body. There is 5 to 6 mm of bony retropulsion of the posterior superior margin of L1 but no significant can al narrowing. 2. Mild edema changes involving the superior and inferior endplates of L2 and superior endplate of L3 associated compression changes suggesting some an acute to subacute element. 3. Edema changes and a mild acute compression injury of the superior endplate of L4 of approximately 20% without significant bony retropulsion.
== END 2019-12-24 10:20 | disposition home or self-care (01) ==
LOC: BICMRI 10:19
PROVIDERS: ATTEND Specialist
DX: S32.040A Wedge compression fracture of fourth lumbar vertebra, initial encounter for closed fracture (principal); S22.080A Wedge compression fracture of T11-T12 vertebra, initial encounter for closed fracture; R60.0 Localized edema; S39.92XA Unspecified injury of lower back, initial encounter
CPT/HCPCS: 72146; 72148

== ENCOUNTER 2020-01-29 15:08 | Outpatient (CLI) | payer MEDICARE, BC ==
--- NOTE | 2020-01-29 16:00 | BD ---
Exam: DEXA Bone Density 01/29/20 HISTORY: Postmenopausal female undergoing screening for osteoporosis. BMD (g/cm2) T-SCORE Left proximal femur Femoral neck 0.467 -3.5 Total proximal femur 0.628 -2.6 Left forearm Distal third distal forearm 0.211 -4.0 Middle third distal forearm 0.314 -5.3 Proximal third distal forearm 0.398 -4.9 Total distal forearm 0.301 -5.1 FRAX: WHO fracture risk assessment tool reports a ten year fracture risk of 62% for major osteoporoti c fracture and 50% for hip fracture. Impression: Diffuse osteoporosis correlating with a high associated risk for fracture. POS: LUCÍA
== END 2020-01-29 15:09 | disposition home or self-care (01) ==
LOC: BICMAMMO 15:08
PROVIDERS: ATTEND Internal Medicine Rheumatology
DX: M80.00XS Age-related osteoporosis with current pathological fracture, unspecified site, sequela (principal)
CPT/HCPCS: 77080

== ENCOUNTER 2020-07-02 13:59 | Outpatient (CLI) | payer MEDICARE, BC ==
--- NOTE | 2020-07-02 15:23 | MMO ---
Bilateral MAMMO Bilat Screen [facility]. CLINICAL HISTORY: Patient is 85 years old and is seen for screening. The patient has the following family history of breast cancer: sister, at age 85. The patient has a history of malignant (generic) in the left breast at age 69. The patient has a history of left Excisional Biopsy in 2004 - malignant and left Lumpectomy in 2004 - malignant. VIEWS: The views performed were: bilateral craniocaudal with tomosynthesis and bilateral mediolateral oblique with tomosynthesis. FILMS COMPARED: The present examination has been compared to prior imaging studies performed at [facility] on 01/13/2015, 01/18/2016, 01/19/2017 and 02/04/2018. This study has been interpreted with the assistance of computer-aided detection. MAMMOGRAM FINDINGS: There are scattered fibroglandular densities. Finding 1: Benign calcifications are noted bilaterally. Finding 2: There is a focal asymmetry seen in the upper-outer region of the left breast. IMPRESSION: FINDING 1: FINDINGS IN BOTH BREASTS ARE BENIGN. FINDING 2: FOCAL ASYMMETRY IN THE LEFT BREAST REQUIRES ADDITIONAL EVALUATION. SPOT COMPRESSION IS RECOMMENDED. AN ULTRASOUND EXAM IS RECOMMENDED. ADDITIONAL IMAGING. THE RESULTS OF THIS EXAM WERE SENT TO THE PATIENT. ACR BI-RADS Category 0 - Incomplete: Need additional imaging evaluation. [facility] will notify the patient of the need for additional imaging services. MAMMOGRAPHY NOTE: 1. A negative mammogram report should not delay a biopsy if a dominant of clinically suspicious mass is present. 2. Approximately 10% to 15% of breast cancers are not detected by mammography. 3. Adenosis and dense breasts may obscure an underlying neoplasm. Reported by: DAYNA RODRIGUEZ MD Electonically Signed: [id number]
== END 2020-07-02 14:00 | disposition home or self-care (01) ==
LOC: BICMAMMO 13:59
PROVIDERS: ATTEND Family Medicine
DX: Z12.31 Encounter for screening mammogram for malignant neoplasm of breast (principal); N64.89 Other specified disorders of breast; Z80.3 Family history of malignant neoplasm of breast; Z85.3 Personal history of malignant neoplasm of breast; Z98.890 Other specified postprocedural states
CPT/HCPCS: 77063; 77067

== ENCOUNTER 2020-07-07 09:38 | Outpatient (CLI) | payer MEDICARE, BC ==
--- NOTE | 2020-07-07 10:58 | MMO ---
Left Breast MAMMO Unilat Diag DDI LT+ESTEFANÍA. CLINICAL HISTORY: Patient is 85 years old and is seen for diagnostic exam. The patient has the following family history of breast cancer: sister, at age 85. The patient has a history of malignant (generic) in the left breast at age 69. The patient has a history of left Excisional Biopsy in 2004 - malignant and left Lumpectomy in 2004 - malignant. VIEWS: The views performed were: left craniocaudal spot compression with tomosynthesis; left mediolateral oblique spot compression with tomosynthesis; and left mediolateral with tomosynthesis. FILMS COMPARED: The present examination has been compared to prior imaging studies performed at [facility] on 01/19/2017, 02/04/2018, 07/02/2020 and 07/07/2020. This study has been interpreted with the assistance of computer-aided detection. MAMMOGRAM FINDINGS: There are scattered fibroglandular densities. There is an irregular mass with spiculated margins seen in the posterior region of the left breast at 2 o'clock located 15 centimeters from the nipple. Additional views were performed. D/w patient in person on 07/07/2020 D/W Dr. Nicolle Kebede over the phone at 10:51 am on 07/07/2020. IMPRESSION: MASS IN THE LEFT BREAST IS HIGHLY SUGGESTIVE OF MALIGNANCY. NEEDLE LOCALIZATION AND BIOPSY ARE RECOMMENDED. NEEDLE LOCALIZATION SHOULD BE DONE UNDER ULTRASOUND GUIDANCE, FOLLOWED BY SURGICAL EXCISIONAL BIOPSY. THE RESULTS OF THIS EXAM WERE SENT TO THE PATIENT. ACR BI-RADS Category 5 - Highly suggestive of malignancy - appropriate action should be taken MAMMOGRAPHY NOTE: 1. A negative mammogram report should not delay a biopsy if a dominant of clinically suspicious mass is present. 2. Approximately 10% to 15% of breast cancers are not detected by mammography. 3. Adenosis and dense breasts may obscure an underlying neoplasm. Reported by: OC NGUYEN MD Electonically Signed: [id number]
--- NOTE | 2020-07-07 14:10 | ULT ---
ULTRASOUND LEFT BREAST LIMITED: DATE: 07/07/2020. HISTORY: An 85-year-old female with suspicious spiculated lesion found on mammogram. TECHNIQUE: Focused ultrasound of the posterior right outer breast. FINDINGS: At approximately the 2-3 o'clock position, 9 cm from the nipple, there is a hypoechoic, approximately 0.6 cm lesion with very irregular, spiculated margins, and acoustic shadowing. It is taller than wi de. This is very close to the chest wall, and therefore, there is at least some risk of pneumothorax during ultrasound-guided core biopsy. Therefore, we recommend ultrasound-guided needle localization followed by surgical excisional biopsy. This was all discussed with the patient immediately after the ultrasound. Dr. Olmos discussed this by telephone with Dr. Nicolle Kebede at 10:51 a.m. 07/07/2020. IMPRESSION: 1. BIRADS category 5 - highly suspicious for malignancy. Appropriate action should be taken. 2. A small spiculated lesion in the far posterior left outer breast at the 2-3 o'clock position. 3. Recommend ultrasound-guided needle localization, followed by surgical excisional biopsy. POS: OFF
== END 2020-07-07 09:39 | disposition home or self-care (01) ==
LOC: BICMAMMO 09:38
PROVIDERS: ATTEND Family Medicine
DX: N64.89 Other specified disorders of breast (principal); N63.21 Unspecified lump in the left breast, upper outer quadrant
CPT/HCPCS: 76642; 77065; G0279

== ENCOUNTER 2020-07-29 07:48 | Outpatient (CLI) | payer MEDICARE, BC, OTHER ==
--- NOTE | 2020-07-29 10:40 | RAD ---
EXAM: Chest 2 views: HISTORY: Preoperative radiograph COMPARISON: 11/13/19 FINDINGS: There is an enlarged but stable cardiomediastinal silhouette. There is no evidence of consolidation, mass, or pleural effusion. Vertebroplasty is seen in the spine. IMPRESSION: No evidence of acute cardiopulmonary disease
[2020-07-29 11:28] LABS: #Eosinphils 0.2 thou/uL (0.0-0.7); #Lymphocytes 1.5 thou/uL (1.20-3.40); #Monocytes 0.6 thou/uL (0.11-0.59); #Neutrophils 2.8 thou/uL (1.40-6.50); %Basophils 0.9 % (0.0-1.0); %Eosinophils 3.6 % (0.0-10.0); %Lymphocytes 28.9 % (21.0-51.0); %Monocytes 12.4 % (0.0-10.0); %Neutrophils 54.3 % (42.0-75.0); Hemoglobin 13.4 g/dL (12.0-16.0); Mean Corpuscular Hemoglobin 33.5 pg (27.0-31.0); Mean Platelet Volume 7.7 fL (7.4-10.4); Platelet Count 287 thou/uL (130-400); RBC Distribution Width 11.2 % (11.5-14.5); White Blood Cell (WBC) Count 5.1 thou/uL (4.8-10.8)
[2020-07-29 11:58] LABS: Chloride 101 mmol/L (98-107); Potassium 4.9 mmol/L (3.5-5.1); Sodium 137 mmol/L (136-145)
[2020-07-29 11:59] LABS: Calcium 9.1 mg/dL (7.8-10.44); Glucose 107 mg/dL (83-110)
[2020-07-29 12:01] LABS: Anion Gap 14 mmol/L (10-20); Carbon Dioxide 27 mmol/L (23-31)
[2020-07-29 12:03] LABS: Calc. Creatinine Clearance 0 mL/min (70-130); Estimated GFR-MDRD 83
[2020-07-29 12:04] LABS: BUN (Urea Nitrogen) 12 mg/dL (9.8-20.1)
[2020-07-29 17:07] LABS: SARS-CoV-2 MS2 Positive; SARS-CoV-2 N Gene Negative; SARS-CoV-2 S Gene Negative; SARS-CoV-2 by NAA Not Detected (NotDetected); SARS-CoV-2 orf1ab Negative
--- NOTE | 2020-08-01 12:02 | EKG ---
Test Reason : Blood Pressure : / mmHG Vent. Rate : 069 BPM Atrial Rate : 071 BPM P-R Int : 000 ms QRS Dur : 078 ms QT Int : 402 ms P-R-T Axes : 000 038 028 degrees QTc Int : 430 ms Atrial fibrillation Abnormal ECG When compared with ECG of 29-JUL-2020 09:53, (Unconfirmed) Previous ECG has undetermined rhythm, needs review Confirmed by HUGH MAREI (2) on 08/01/2020 12:01:36 PM Referred By: JOSUÉ Confirmed By:HUGH MARIE
== END 2020-07-29 07:49 | disposition home or self-care (01) ==
LOC: LABBT 07:48 → SCSRAD 07:49
PROVIDERS: ATTEND Specialist
DX: Z01.818 Encounter for other preprocedural examination (principal); Z20.828 Contact with and (suspected) exposure to other viral communicable diseases; N63.20 Unspecified lump in the left breast, unspecified quadrant
CPT/HCPCS: 71046; 80048; 85025; 87635; 93005; 93010; U0003

== ENCOUNTER → 2020-08-03 | Day surgery (SDC) | payer MEDICARE, BC ==
[2020-08-02 09:57] VITALS: BMI 27.1
[~2020-08-03] MED LIST: Bupivacaine/Epinephrine 0.25% 30 ML VIAL ONE; Dexamethasone 20 MG/5 ML VIAL ONE; EPHEDRINE 25 MG/5 ML SYRINGE ONE; Famotidine/PF 20 mg/2ml Vial ONE; Fentanyl 100 MCG/2 ML VIAL ONE; Ketorolac Tromethamine 30 MG/ML VIAL ONE; Levofloxacin 500 mg/D5W 100 ml Premix Bag ONE; Lidocaine 1% PF 5 ML VIAL ONE; Ondansetron PF 4 MG/2 ML Vial ONE; PHENYLEPHRINE-NS 100 MCG/ML 10 ML SYRINGE ONE; PROPOFOL 200 MG/20 ML VIAL ONE
--- NOTE | 2020-08-03 10:02 | ULT ---
EXAM: US Breast Local Dev US Guide PROVIDED CLINICAL HISTORY: Left breast mass. Needle localization prior to excisional biopsy was requested. COMPARISON: Left breast ultrasound 07/07/2020 TECHNIQUE: The procedure including the risks and complications were explained to the patient, and informed conse nt was obtained. Patient was placed on the sonography table in the supine position. The irregular hypoechoic mass with posterior shadowing was localized at the far lateral left breast at the 2:00 pos ition. An area was marked and then meticulously prepped and draped in usual sterile fashion. The skin and subcutaneous tissues were infiltrated with buffered 1% lidocaine for local anesthesia. Utili zing concurrent real-time ultrasound guidance, a 5 cm length Sargents localization needle and wire were advanced through the mass at the 2:00 position left breast. The wire was deployed. A dry sterile dressing was placed. A follow-up mammogram was performed demonstrating that the localized left breast mass corresponds to the spiculated mass in the lateral left breast on mammographic evaluation. Patient tolerated the procedure well and without immediate complication. Patient was transported to surgery for excisional biopsy. IMPRESSION: Technically successful ultrasound guided needle and wire localization of a hypoechoic irregular left breast mass.
--- NOTE | 2020-08-03 10:04 | MMO ---
EXAM: MAMMO Diag Post Proc Ltd Lt PROVIDED CLINICAL HISTORY: Post ultrasound-guided needle wire localization of a left breast mass 2:00 position left breast COMPARISON: Mammograms on 07/21/2020 FINDINGS: CC and 90 degree mediolateral views left breast are obtained. A needle and wire traverse the mass wit h spiculated margins in the upper outer left breast at approximately the 2:00 position. Findings on ultrasound correlate with mammographic findings. IMPRESSION: Post needle and wire localization left breast mass.
--- NOTE | 2020-08-04 01:42 | OP ---
DATE OF PROCEDURE: 08/03/2020 PREOPERATIVE DIAGNOSIS: Concerning lesion in the lateral left breast. POSTOPERATIVE DIAGNOSIS: Concerning lesion in the lateral left breast. PROCEDURES PERFORMED: Left breast needle localized excisional biopsy. ANESTHESIA: General with laryngeal mask airway. INDICATIONS: Patient is an 85-year-old white female. She had recent mammography revealing a potentially concerning lesion in the lateral left breast. On ultrasound, this was difficult to define, but felt to be in the far lateral left breast, but was not easily amenable to a needle biopsy with ultrasound guidance. Due to its depth, it was felt that this would be best evaluated with a needle localized excisional biopsy. Ultrasound-guided needle localization was performed in Radiology prior to the surgery. DESCRIPTION OF OPERATION: Informed consent was obtained. Patient was taken to the operating room, where general anesthesia obtained patient in supine position. Left breast was prepped with ChloraPrep and draped in sterile fashion. The localizing needle was in the far lateral left breast and placed in a more or less inferior to superior trajectory. I created a transverse incision along the course of the localizing needle. It appeared that the lesion of concern was in the last centimeter of the needle. Dissection was carried through skin and subcutaneous tissue. Dissection was carried inferiorly to identify the localizing needle. At that point, the needle was 3 cm from its tip. I removed the needle and left the wire in site and then replaced the wire to the incision site. The tissue into which the wire entered was grasped with Allis clamps and a wide core of tissue around the wire was dissected extending into the breast and down to the chest wall. The dissection was carried medially off overlying the pectoralis and muscular fascia laterally. The specimen was removed intact. It was tagged with suture for orientation and submitted to pathology. Meticulous hemostasis obtained within the wound using electrocautery. The wound was irrigated. The wound was closed in layers with 3-0 and 4-0 Monocryl. Dermabond was placed externally. There were no complications. The patient tolerated the procedure well, was taken to Recovery in stable condition. Job ID: [id number]
== END ==
LOC: SDC 08:27
PROVIDERS: ATTEND Specialist
PROC: 0HBU0ZX Excision of Left Breast, Open Approach, Diagnostic (ICD-10-PCS; principal; 2020-08-03)
DX: C50.412 Malignant neoplasm of upper-outer quadrant of left female breast (principal); E03.9 Hypothyroidism, unspecified; F32.9 Major depressive disorder, single episode, unspecified; K21.9 Gastro-esophageal reflux disease without esophagitis; D64.9 Anemia, unspecified; M19.90 Unspecified osteoarthritis, unspecified site; M81.0 Age-related osteoporosis without current pathological fracture; Z79.01 Long term (current) use of anticoagulants; Z79.899 Other long term (current) drug therapy; Z88.0 Allergy status to penicillin; Z88.2 Allergy status to sulfonamides; Z88.5 Allergy status to narcotic agent; Z88.8 Allergy status to other drugs, medicaments and biological substances
CPT/HCPCS: 19285; 88307; 88341; 88342; 88360; J1100; J1885; J1956; J2405; J2704; J3010; S0028

== ENCOUNTER 2020-09-07 07:29 | Day surgery (SDC) | payer MEDICARE, BC ==
[2020-09-06 10:22] VITALS: BMI 28.9
[2020-09-07] MEDS ORDERED: Acetaminophen 500 MG TAB ONE ×2 (09:25→09:26)
[2020-09-07] MEDS ORDERED: Ketorolac Tromethamine 30 MG/ML VIAL ONE (09:26)
--- NOTE | 2020-09-07 09:35 | NM ---
LYMPHOSCINTIGRAPHY LEFT BREAST: DATE: 09/07/2020 : 85-year-old female with malignant neoplasm of upper outer quadrant of left female breast. TECHNIQUE: Signed informed consent obtained. Injection performed by nuclear medicine chief technologist. Alcohol swabb ing four-quadrant left periareolar distribution. Using 30-gauge needle, buffered lidocaine was applied to those 4 quadrants. Next, using 4 separate 30-gauge needles in 4 separate tuberculin syring es, a total of 0.41 mCi of technetium 99m sulfur colloid was injected into those same 4 periareolar quadrants. Immediate anterior and lateral scintigraphic images obtained of the chest. Patient tolerat ed procedure well. No complications. FINDINGS: There is uptake in sentinel left axillary lymph node which is located several centimeters directly po sterior to the nipple, such that it is only visible on the lateral view. It is obscured by the strong periareolar activity on the frontal view. There is faint uptake in what is probably the second left axillary lymph node located much more super iorly, medially, and posteriorly in the left axilla. IMPRESSION: Successful left breast lymphoscintigraphy
[2020-09-07] MEDS ORDERED: Isosulfan Blue 50 MG/5 ML VIAL ONE (11:56)
[2020-09-07] MEDS ORDERED: PROPOFOL 200 MG/20 ML VIAL ONE (12:46)
[2020-09-07] MEDS ORDERED: Dexamethasone 20 MG/5 ML VIAL ONE (12:46)
[2020-09-07] MEDS ORDERED: Naloxone HCl 0.4 mg/ml Vial ONE (12:46)
[2020-09-07] MEDS ORDERED: PHENYLEPHRINE-NS 100 MCG/ML 10 ML SYRINGE ONE (12:46)
[2020-09-07] MEDS ORDERED: Ondansetron PF 4 MG/2 ML Vial ONE (12:46)
[2020-09-07] MEDS ORDERED: ePHEDrine 50 MG/ML VIAL ONE (12:46)
[2020-09-07] MEDS ORDERED: Lidocaine 1% PF 5 ML VIAL ONE (12:46)
[2020-09-07] MEDS ORDERED: Fentanyl 100 MCG/2 ML VIAL ONE (13:27)
[2020-09-07] MEDS ORDERED: Lidocaine 2% w/Epinephrine 1:200K 20 ML VIAL ONE (13:29)
[2020-09-07] MEDS ORDERED: Bupivacaine 0.25% HCL 30 ML VIAL ONE (13:29)
[2020-09-07] MEDS ORDERED: Lidocaine 1% w/Epinephrine 1:100K 20 ML VIAL ONE (13:29)
--- NOTE | 2020-09-08 13:12 | OP ---
DATE OF PROCEDURE: 09/07/2020 PREOPERATIVE DIAGNOSES: Left breast lobular carcinoma, history of prior breast surgery and radiation. POSTOPERATIVE DIAGNOSES: Left breast lobular carcinoma, history of prior breast surgery and radiation. OPERATION PERFORMED: Left breast lumpectomy and sentinel lymph node biopsy. ANESTHESIA: General endotracheal. INDICATIONS FOR PROCEDURE: The patient is an 85-year-old white female. She had previously undergone a needle localized excisional biopsy of a lateral left breast mass. This revealed lobular carcinoma with 2 margins positive. She has a history of prior left breast lumpectomy with radiation therapy and some form of axillary intervention. She was uncertain if this had been a sentinel lymph node biopsy or an axillary node dissection. After discussion and consideration of options, she has elected to proceed with breast conservation, understanding that further radiation therapy is likely not possible and that there is an increased risk therefore of local recurrence. Additionally, I have decided to attempt a sentinel lymph node biopsy, but will likely not proceed with an axillary node dissection if the sentinel node biopsy was felt to not be successful. DESCRIPTION OF OPERATION: Informed consent was obtained. The patient was taken to the operating room, where general anesthesia was obtained with the patient in supine position. Preoperative lymphoscintigraphy had been obtained revealing what appeared to be an obvious sentinel lymph node. In the operating room, her breast was prepped with ChloraPrep. I infiltrated 3 mL of Lymphazurin in the periareolar subdermal tissue. The breast was massaged for 5 minutes. I initially utilized the Neoprobe to try to identify the area of the sentinel lymph node. Surprisingly, this appeared to be very close to the prior incision rather than further up within the axilla. The prior incision was at the far lateral left breast, but further inferior than the typical sentinel lymph node would be. I therefore opened the prior incision and dissected down to the prior biopsy cavity. In utilizing the Neoprobe, I identified an area of strong radiointensity on the superior aspect of the incision. Again, this is atypical and that it would seem to be much more superficial than typical karen tissue would be, but I was able to identify an area that had some blue staining and radioactivity and dissected this from the superior margin of the prior incision, removed intact, and passed off the field with a sentinel lymph node. I decided to obtain permanent pathology on this. I excised some of the undermined skin in this area to allow for appropriate closure. Attention was then turned to the re-excision of the lumpectomy cavity. The margins of concern were the anterior and inferior margin. I therefore began the dissection of the inferior aspect of the lumpectomy incision obtaining a rim of tissue of several mm along the anterior, inferior, and superior aspects, re-excised essentially the inferior half of the lumpectomy. This tissue was removed intact and oriented with sutures and submitted to pathology. Meticulous hemostasis was obtained with electrocautery. The skin edges were debrided as necessary and the wound was closed in careful layers using 3-0 Vicryl and 4-0 Monocryl. Dermabond was placed externally. There were no complications. Of note, there was no other area of radiointensity noted lateral to the breast or within the axilla. Job ID: [id number]
== END 2020-09-07 16:25 | disposition home or self-care (01) ==
LOC: NM 07:29
PROVIDERS: ATTEND Specialist
PROC: 0HBU0ZZ Excision of Left Breast, Open Approach (ICD-10-PCS; principal; 2020-09-07)
PROC: 07B60ZX Excision of Left Axillary Lymphatic, Open Approach, Diagnostic (ICD-10-PCS; 2020-09-07)
DX: C50.912 Malignant neoplasm of unspecified site of left female breast (principal); N60.92 Unspecified benign mammary dysplasia of left breast; I48.91 Unspecified atrial fibrillation; E03.9 Hypothyroidism, unspecified; I10 Essential (primary) hypertension; M81.0 Age-related osteoporosis without current pathological fracture; M19.90 Unspecified osteoarthritis, unspecified site; G47.00 Insomnia, unspecified; F32.9 Major depressive disorder, single episode, unspecified; K21.9 Gastro-esophageal reflux disease without esophagitis; Z79.01 Long term (current) use of anticoagulants; Z79.899 Other long term (current) drug therapy; Z88.0 Allergy status to penicillin; Z88.2 Allergy status to sulfonamides; Z88.5 Allergy status to narcotic agent; Z88.8 Allergy status to other drugs, medicaments and biological substances
CPT/HCPCS: 19301; 38525; 38900; 78195; 88307; 88342; A9541; Q9968; J0690; J1100; J1885; J2310; J2405; J2704; J3010; J3490; S0020

== ENCOUNTER 2021-07-20 08:13 | Outpatient (CLI) | payer MEDICARE, BC | END 2021-07-20 08:14 | disposition home or self-care (01) | LOC: BICMAMMO 08:13 | PROVIDERS: ATTEND Specialist | DX: Z08 Encounter for follow-up examination after completed treatment for malignant neoplasm (principal); Z85.3 Personal history of malignant neoplasm of breast | CPT/HCPCS: 77066; G0279 ==

== ENCOUNTER 2022-07-24 12:33 | Outpatient (CLI) | payer MEDICARE, BC | END 2022-07-24 12:34 | disposition home or self-care (01) | LOC: BICMAMMO 12:33 | PROVIDERS: ATTEND Specialist | DX: Z08 Encounter for follow-up examination after completed treatment for malignant neoplasm (principal); Z85.3 Personal history of malignant neoplasm of breast | CPT/HCPCS: 77066; G0279 ==

== ENCOUNTER 2022-08-24 10:38 | Outpatient (CLI) | payer MEDICARE, BC | END 2022-08-24 10:39 | disposition home or self-care (01) | LOC: BICMAMMO 10:38 | PROVIDERS: ATTEND Internal Medicine Rheumatology | DX: M80.00XS Age-related osteoporosis with current pathological fracture, unspecified site, sequela (principal) | CPT/HCPCS: 77080 ==

== ENCOUNTER 2023-07-30 08:35 | Outpatient (CLI) | payer MEDICARE, BC | END 2023-07-30 08:36 | disposition home or self-care (01) | LOC: BICMAMMO 08:35 | PROVIDERS: ATTEND Specialist | DX: Z08 Encounter for follow-up examination after completed treatment for malignant neoplasm (principal); Z85.3 Personal history of malignant neoplasm of breast | CPT/HCPCS: 77066; G0279 ==

== ENCOUNTER 2023-11-22 13:00 | Outpatient (CLI) | payer MEDICARE, BC | END 2023-11-22 13:01 | disposition home or self-care (01) | LOC: BICMAMMO 13:00 | PROVIDERS: ATTEND Family Medicine | DX: Z13.820 Encounter for screening for osteoporosis (principal); M81.0 Age-related osteoporosis without current pathological fracture; Z78.0 Asymptomatic menopausal state | CPT/HCPCS: 77080 ==

== ENCOUNTER 2024-07-31 08:52 | Outpatient (CLI) | payer MEDICARE, BC | END 2024-07-31 08:53 | disposition home or self-care (01) | LOC: BICMAMMO 08:52 | PROVIDERS: ATTEND Specialist | DX: Z08 Encounter for follow-up examination after completed treatment for malignant neoplasm (principal); Z85.3 Personal history of malignant neoplasm of breast | CPT/HCPCS: 77066; G0279 ==